=== PATIENT | female | born 1980 | race Caucasian/White ===

== ENCOUNTER 2023-12-11 16:16 | Emergency (ER) | payer BC, OTHER ==
[2023-12-11 17:07] VITALS: BP 126/72; PULSE 61; RESP 18; TEMP 99; BMI 26.6
[2023-12-11 17:57] LABS: HEMATOCRIT 44.4 % (32.4-45.2); HEMOGLOBIN 14.3 G/dL (10.7-15.3); MCH 28.1 pg (25.7-33.7); MCHC 32.2 g/dl (32.0-36.0); MEAN PLT VOLUME 9.2 fl (7.5-11.1); PLATELET COUNT 167.5 10^3/uL (134-434); RDW 15.1 % (11.6-15.6); WHITE BLOOD COUNT 7.6 10^3/uL (4.0-10.8)
[2023-12-11 18:19] LABS: ALBUMIN 4.6 g/dl (3.4-5.0); BILIRUBIN,TOTAL 0.9 mg/dl (0.2-1); CALCIUM 9.4 mg/dl (8.5-10.1); CREATININE 0.7 mg/dl (0.6-1.3); POTASSIUM 3.8 mmol/L (3.5-5.1); TOT PROT 7.4 g/dl (6.4-8.2)
[2023-12-11 18:52] LABS: PLATELET ESTIMATE ADEQUATE
== END 2023-12-11 19:03 | disposition home or self-care (01) ==
LOC: FER 16:16
DX: K62.5 Hemorrhage of anus and rectum (principal); K64.4 Residual hemorrhoidal skin tags
CPT/HCPCS: 36415; 80053; 85027; 99283-25